=== PATIENT | female | born 1955 | race Caucasian/White ===

== ENCOUNTER 2018-01-29 11:24 | Day surgery (SDC) | payer MEDICARE ==
[~2018-01-29 11:24] MED LIST: CLINDAMYCIN 600 MG/D5W RTU 600 MG/50 ML RTUPB IV PRN
[2018-01-29] MEDS ORDERED: BUPIVACAINE HCL 0.5%-EPI 1:200000 INJ/PF 30 ML VIAL ONE (15:09)
[2018-01-29] MEDS ORDERED: LIDOCAINE 1% INJ-PF (10 MG/ML) 30 ML SDV ONE (15:09)
[2018-01-29] MEDS ORDERED: SODIUM BICARBONATE 8.4% INJ 50 MEQ/50 ML DISP.SYRIN ONE (15:12)
[2018-01-29] MEDS ORDERED: FENTANYL CITRATE INJ/PF 100 MCG/2 ML AMPUL ONE (15:17)
[2018-01-29] MEDS ORDERED: PROPOFOL INJ 200 MG/20 ML VIAL IV ONE (15:18)
[2018-01-29] MEDS ORDERED: MIDAZOLAM 2 MG/2 ML INJ ONE (15:18)
[2018-01-29] MEDS ORDERED: MEPERIDINE HCL/PF INJ 25 MG/1 ML DISP.SYRIN IV PRN (16:02)
[2018-01-29] MEDS ORDERED: OXYCODONE-ACETAMINOPHEN 5-325 MG TABLET PO PRN ×3 (16:02→16:49)
[2018-01-29] MEDS ORDERED: PROMETHAZINE HCL INJ 25 MG/1 ML VIAL IV PRN ×2 (16:02)
[2018-01-29] MEDS ORDERED: DIPHENHYDRAMINE HCL 50 MG/ML VIAL IV PRN (16:02)
[2018-01-29] MEDS ORDERED: FENTANYL CITRATE INJ/PF 100 MCG/2 ML AMPUL IV PRN ×3 (16:02)
[2018-01-29] MEDS ORDERED: ONDANSETRON HCL INJ/PF 4 MG/2 ML SDV IV PRN (16:49)
[2018-01-29] MEDS ORDERED: CLINDAMYCIN 600 MG/D5W RTU 600 MG/50 ML RTUPB IV ONE (18:00)
[2018-01-29] MEDS ORDERED: CLINDAMYCIN 300 MG/D5W RTU 300 MG/50 ML RTUPB IV ONE (18:30)
[2018-01-29 18:55] VITALS: BP 124/69
--- NOTE | 2018-01-29 18:59 | OPERATIVE REPORT E ---
Operative Report NAME: LADAN WESTON : 1955 AGE: 62Y DATE OF SURGERY: 01/29/2018 ROOM: PREOPERATIVE DIAGNOSIS: End of life intrathecal pump battery. POSTOPERATIVE DIAGNOSIS: End of life intrathecal pump battery. OPERATION: Revision and replacement of intrathecal morphine pump. OPERATIVE FINDINGS: Old battery still functioning, though at end of battery life. SURGEON: VITO JULIO M.D. ASSOCIATE FINANCIAL REPRESENTATIVE: None. ANESTHESIA: Local with sedation. PERIOPERATIVE ANTIBIOTICS: 600 mg of clindamycin given perioperatively. SPECIMENS REMOVED: Old intrathecal pump reservoir. ESTIMATED BLOOD LOSS: 5 mL. IV FLUIDS: 1 L of balanced crystalloid solution. INDICATIONS: The patient is a 62-year-old female with an intrathecal morphine pump. Her morphine pump has come to the end of its battery life and needs to be replaced. All risks and benefits were discussed with the patient, including, but not limited to, bleeding, bruising, infection, injury to nerves, arteries, veins, the possibility that the catheter could become dislodged and need revised as well, and risks associated with anesthesia. Additional risks include paralysis and potentially, . The patient expressed understanding and agreed to procedure. PROCEDURE: The patient was accompanied by Anesthesia to the operative suite where she was placed in supine position with a bump under the left hip to allow for good visualization of the intrathecal pump site in the left lower abdomen. The previous pump incision site was marked. The patient's pressure points were checked and padded and standard ASA lines and monitors were applied. The patient was prepped with chlorhexidine gluconate solution and draped in sterile fashion using Ioban drape. A timeout protocol was performed as per [facility] standards. The patient received clindamycin perioperatively. The previously-marked planned incision site was anesthetized with 1% buffered lidocaine using a 25-gauge needle. Deeper tissues were infiltrated using 0.25% bupivacaine with 1:100,000 epinephrine. Incision was made using a 15 blade scalpel and then deeper dissection was performed using Bovie. The pump was easily visualized and delivered from the pocket. Using the Payan needle catheter access port, 2 mL of fluid were drawn from the catheter, including cerebrospinal fluid. Following this, 35 mL of morphine solution was withdrawn from the in situ pump. This was replaced into the new pump so that the pump could be primed. The old pump was disconnected from the catheter and new pump was reconnected after insertion of the medication. Two 0-Mersilene sutures were used to affix the new pump to the pocket. The pocket then was copiously irrigated with a Betadine solution. The pocket was then closed using interrupted 3-0 Vicryl suture and the skin was then closed using katheryn. Dressings were applied. The surrounding tissues were infiltrated with 0.25% bupivacaine after skin closure. Dressings were applied. The patient was accompanied to PACU in stable condition by anesthesia staff. The [employer] technical support representative in the room provided a priming bolus for the pump. An additional 0.3 mg of morphine was also bolused for postoperative pain and increased pain from the patient's long drive here. The patient will be seen 1 week postoperatively. DICTATING PHYSICIAN: VITO JULIO M.D. [id number] PHY#: [id number] ID: [id number] JOB#: [id number] ACCT: [id number] cc:VITO JULIO M.D. > MTDD
== END 2018-01-29 18:45 | disposition home or self-care (01) ==
LOC: OROUT 11:24
PROVIDERS: ATTEND Pain Medicine Interventional Pain Medicine
PROC: 0JH80VZ Insertion of Infusion Pump into Abdomen Subcutaneous Tissue and Fascia, Open Approach (ICD-10-PCS; 2018-01-29)
PROC: 0JPT0VZ Removal of Infusion Pump from Trunk Subcutaneous Tissue and Fascia, Open Approach (ICD-10-PCS; principal; 2018-01-29 14:00)
DX: G89.4 Chronic pain syndrome (principal); T85.9XXA Unspecified complication of internal prosthetic device, implant and graft, initial encounter; Y83.1 Surgical operation with implant of artificial internal device as the cause of abnormal reaction of the patient, or of later complication, without mention of misadventure at the time of the procedure; E78.5 Hyperlipidemia, unspecified; M48.00 Spinal stenosis, site unspecified; E66.9 Obesity, unspecified; M19.90 Unspecified osteoarthritis, unspecified site; Z79.899 Other long term (current) drug therapy; Z88.1 Allergy status to other antibiotic agents; Z88.0 Allergy status to penicillin; Z88.8 Allergy status to other drugs, medicaments and biological substances; Z79.891 Long term (current) use of opiate analgesic; Z45.1 Encounter for adjustment and management of infusion pump; Z68.38 Body mass index [BMI] 38.0-38.9, adult
CPT/HCPCS: 36415; 84132; 62361; C1772; J2250; J3490 ×3; J3010; A9270; J2405; J2704; 400